=== PATIENT | male | born 1965 | race Two or more races ===

== ENCOUNTER → 2017-09-23 | Outpatient (CLI) | payer OTHER | END | disposition home or self-care (01) | LOC: TOM 12:07 | DX: H70.009 Acute mastoiditis without complications, unspecified ear (principal); H75.81 Other specified disorders of right middle ear and mastoid in diseases classified elsewhere; H70.11 Chronic mastoiditis, right ear ==

== ENCOUNTER → 2017-11-05 | Outpatient (CLI) | payer OTHER | END | disposition home or self-care (01) | LOC: TOM 15:22 | DX: G93.89 Other specified disorders of brain (principal) ==

== ENCOUNTER 2018-03-01 10:19 | Outpatient (CLI) | payer OTHER | END 2018-03-01 10:31 | disposition home or self-care (01) | LOC: RAD 501 10:19 | DX: J40 Bronchitis, not specified as acute or chronic (principal); J44.9 Chronic obstructive pulmonary disease, unspecified; J42 Unspecified chronic bronchitis ==

== ENCOUNTER 2018-06-14 10:31 | Emergency (ER) | payer OTHER ==
[~2018-06-14] VITALS: Ht 172.7 cm; Wt 83.9 kg
== END 2018-06-14 11:44 | disposition home or self-care (01) ==
LOC: ER 10:31
DX: H92.01 Otalgia, right ear (principal); R07.89 Other chest pain

== ENCOUNTER 2018-07-27 07:56 | Outpatient (CLI) | payer OTHER | END 2018-07-27 08:04 | disposition home or self-care (01) | LOC: SONOGRAMA 07:56 | DX: R22.1 Localized swelling, mass and lump, neck (principal) ==

== ENCOUNTER 2019-03-29 10:53 | Outpatient (CLI) | payer OTHER | END 2019-03-29 10:55 | disposition home or self-care (01) | LOC: MRI 10:53 | DX: M54.2 Cervicalgia (principal) | CPT/HCPCS: 72141 ==

== ENCOUNTER 2019-05-10 07:39 | Emergency (ER) | payer OTHER ==
[~2019-05-10] VITALS: Ht 172.7 cm; Wt 78.0 kg
== END 2019-05-10 08:49 | disposition home or self-care (01) ==
LOC: ER 07:39
DX: M54.2 Cervicalgia (principal); H70.13 Chronic mastoiditis, bilateral

== ENCOUNTER 2019-08-26 08:22 | Emergency (ER) | payer OTHER ==
[~2019-08-26] VITALS: Ht 172.7 cm; Wt 81.6 kg
[2019-08-26] MEDS ORDERED: VALIUM PO (08:57)
[2019-08-26] MEDS ORDERED: TYLENOL325 MG PO (09:12)
== END 2019-08-26 10:20 | disposition home or self-care (01) ==
LOC: ER 08:22
DX: M54.6 Pain in thoracic spine (principal)

== ENCOUNTER → 2019-08-26 | Emergency (ER) | payer OTHER ==
[~2019-08-26] MED LIST: TYLENOL325 MG PO; VALIUM PO
== END | disposition left against medical advice (07) ==
LOC: ER 07:50
DX: Z53.20 Procedure and treatment not carried out because of patient's decision for unspecified reasons (principal)

== ENCOUNTER 2020-02-01 17:45 | Emergency (ER) | payer OTHER ==
[~2020-02-01] VITALS: Ht 172.7 cm; Wt 79.4 kg
== END 2020-02-01 22:26 | disposition home or self-care (01) ==
LOC: ER 17:45
DX: B34.9 Viral infection, unspecified (principal); Z03.818 Encounter for observation for suspected exposure to other biological agents ruled out

== ENCOUNTER 2020-02-14 08:00 | Outpatient (CLI) | payer OTHER | END 2020-02-14 15:00 | disposition home or self-care (01) | LOC: PPH VACUNA 08:00 | DX: Z23 Encounter for immunization (principal) ==

== ENCOUNTER 2020-02-27 15:32 | Emergency (ER) | payer OTHER ==
[~2020-02-27] VITALS: Ht 172.7 cm; Wt 77.1 kg
== END 2020-02-27 19:23 | disposition home or self-care (01) ==
LOC: ER 15:32
DX: R06.02 Shortness of breath (principal); Z03.818 Encounter for observation for suspected exposure to other biological agents ruled out

== ENCOUNTER 2020-03-27 15:34 | Emergency (ER) | payer OTHER ==
[~2020-03-27] VITALS: Ht 172.7 cm; Wt 79.4 kg
== END 2020-03-27 17:52 | disposition home or self-care (01) ==
LOC: ER 15:34
DX: B34.9 Viral infection, unspecified (principal); Z03.818 Encounter for observation for suspected exposure to other biological agents ruled out

== ENCOUNTER 2020-04-17 16:34 | Emergency (ER) | payer OTHER ==
[~2020-04-17] VITALS: Ht 177.8 cm; Wt 83.9 kg
== END 2020-04-17 18:25 | disposition home or self-care (01) ==
LOC: ER 16:34
DX: R05 Cough (principal); Z03.818 Encounter for observation for suspected exposure to other biological agents ruled out

== ENCOUNTER 2020-05-15 09:25 | Outpatient (CLI) | payer OTHER | END 2020-05-15 15:00 | disposition home or self-care (01) | LOC: PPH VACUNA 09:25 | DX: Z23 Encounter for immunization (principal) ==

== ENCOUNTER 2020-06-04 11:15 | Outpatient (CLI) | payer OTHER | END 2020-06-04 15:00 | disposition home or self-care (01) | LOC: PPH VACUNA 11:15 | DX: Z23 Encounter for immunization (principal) ==

== ENCOUNTER → 2020-07-24 | Emergency (ER) | payer OTHER ==
[~2020-07-24] VITALS: Ht 175.3 cm; Wt 72.6 kg
== END | disposition home or self-care (01) ==
LOC: ER 11:37
DX: M79.671 Pain in right foot (principal); Z03.818 Encounter for observation for suspected exposure to other biological agents ruled out

== ENCOUNTER → 2020-10-09 08:59 | Outpatient (CLI) | payer OTHER | END | disposition home or self-care (01) | LOC: LAB 08:59 | DX: E88.81 Metabolic syndrome and other insulin resistance (principal); E03.8 Other specified hypothyroidism; E04.0 Nontoxic diffuse goiter; Z13.0 Encounter for screening for diseases of the blood and blood-forming organs and certain disorders involving the immune mechanism; E55.9 Vitamin D deficiency, unspecified; E66.8 Other obesity; E78.00 Pure hypercholesterolemia, unspecified; F51.01 Primary insomnia; Z12.5 Encounter for screening for malignant neoplasm of prostate; M19.90 Unspecified osteoarthritis, unspecified site ==

== ENCOUNTER 2021-01-09 14:32 | Emergency (ER) | payer OTHER ==
[~2021-01-09] VITALS: Ht 172.7 cm; Wt 82.6 kg
== END 2021-01-09 16:38 | disposition home or self-care (01) ==
LOC: ER 14:32
DX: Z03.818 Encounter for observation for suspected exposure to other biological agents ruled out (principal); R53.81 Other malaise

== ENCOUNTER 2021-01-24 08:00 | Outpatient (CLI) | payer OTHER | END 2021-01-24 08:30 | disposition home or self-care (01) | LOC: PPH VACUNA 08:00 | DX: Z23 Encounter for immunization (principal) ==

== ENCOUNTER → 2021-01-25 | Outpatient (CLI) | payer OTHER | END | disposition home or self-care (01) | LOC: LAB 08:19 | PROVIDERS: ATTEND Internal Medicine | DX: E11.9 Type 2 diabetes mellitus without complications (principal) ==

== ENCOUNTER 2021-03-01 15:40 | Outpatient (CLI) | payer OTHER | END 2021-03-01 15:45 | disposition home or self-care (01) | LOC: PPH VACUNA 15:40 | PROVIDERS: ATTEND Emergency Medicine Pediatric Emergency Medicine | DX: Z23 Encounter for immunization (principal) ==

== ENCOUNTER 2021-08-29 08:00 | Outpatient (CLI) | payer OTHER | END 2021-08-29 08:30 | disposition home or self-care (01) | LOC: PPH VACUNA 08:00 | PROVIDERS: ATTEND Emergency Medicine Pediatric Emergency Medicine | DX: Z23 Encounter for immunization (principal) ==

== ENCOUNTER 2021-10-15 07:08 | Outpatient (CLI) | payer OTHER | END 2021-10-15 08:47 | disposition home or self-care (01) | LOC: LAB 07:08 | PROVIDERS: ATTEND General Practice | DX: I10 Essential (primary) hypertension (principal); E11.9 Type 2 diabetes mellitus without complications; E03.9 Hypothyroidism, unspecified; N40.1 Benign prostatic hyperplasia with lower urinary tract symptoms ==

== ENCOUNTER 2022-02-14 14:40 | Outpatient (CLI) | payer OTHER | END 2022-02-14 14:45 | disposition home or self-care (01) | LOC: PPH VACUNA 14:40 | PROVIDERS: ATTEND Emergency Medicine Pediatric Emergency Medicine | DX: Z23 Encounter for immunization (principal) ==

== ENCOUNTER 2023-03-06 12:32 | Emergency (ER) | payer OTHER ==
[~2023-03-06] VITALS: Ht 177.8 cm; Wt 90.7 kg
[2023-03-06] MEDS ORDERED: OZEMPIC1 MG/0.71 SQ (12:33)
[2023-03-06 13:09] LABS: HEMATOCRIT 43.2 % (39.0-48.0); HEMOGLOBIN 14.5 g/dL (13-16.00); MEAN CELL VOLUME 95.4 fL (80.0-100.00); MEAN CORPUSCULAR HEMOGLOBIN 31.9 pg (27.00-32.0); MEAN CORPUSCULAR HGB CONC 33.4 g/dl (32.0-36.0); PLATELET COUNT 222 K/uL (150-450); RED BLOOD COUNT 4.53 M/uL (4.00-6.00); RED CELL DISTRIBUTION WIDTH 13.5 % (11.5-14.5)
[2023-03-06 13:32] LABS: ALBUMIN 4.3 gm/dL (3.4-5.0); BILIRUBIN TOTAL 0.38 mg/dL (0.3-1.2); CALCIUM 9.5 mg/dL (8.5-10.1); CREATININE SERUM 1.34 mg/dL (0.70-1.30); GFR 54.37; GLOBULINA 3.8 G/DL (2.4-3.5); POTASSIUM 4.59 mEq/L (3.5-5.1); TOTAL PROTEIN 8.1 gm/dL (6.4-8.2)
[2023-03-06 13:56] LABS: PH,URINE 5.5 (5.0-8.0); URINE APPEARANCE Clear; URINE BILIRRUBIN Negative (NEGATIVE); URINE BLOOD Large; URINE COLOR Yellow; URINE GLUCOSE Negative (NEGATIVE); URINE LEUKOCYTE Trace; URINE NITRATE Negative; URINE PROTEIN Trace (NEGATIVE)
[2023-03-06 14:10] LABS: URINE BACTERIA 17.6 uL (0.0-1933); URINE RBC 172.4 uL (0.0-20.8)
== END 2023-03-06 15:11 | disposition home or self-care (01) ==
LOC: ER 12:32
PROVIDERS: Emergency Medicine
DX: N20.9 Urinary calculus, unspecified (principal); E11.65 Type 2 diabetes mellitus with hyperglycemia; Z79.84 Long term (current) use of oral hypoglycemic drugs; K57.30 Diverticulosis of large intestine without perforation or abscess without bleeding; Z88.6 Allergy status to analgesic agent

== ENCOUNTER 2023-05-13 07:17 | Outpatient (CLI) | payer OTHER ==
[~2023-05-13 07:17] MED LIST changes: +OZEMPIC1 MG/0.71 SQ
== END 2023-05-13 07:50 | disposition home or self-care (01) ==
LOC: SONOGRAMA 07:17
PROVIDERS: ATTEND Specialist
DX: R19.09 Other intra-abdominal and pelvic swelling, mass and lump (principal)

== ENCOUNTER 2023-05-15 11:56 | Outpatient (CLI) | payer OTHER | END 2023-05-15 11:57 | disposition home or self-care (01) | LOC: RAD 11:56 | PROVIDERS: ATTEND Emergency Medicine | DX: Z01.818 Encounter for other preprocedural examination (principal) ==

== ENCOUNTER 2023-08-06 20:32 | Emergency (ER) | payer OTHER ==
[~2023-08-06] VITALS: Ht 167.6 cm; Wt 77.1 kg
[2023-08-06] MEDS ORDERED: FAMOTIDINE/PF 20 MG in 0.9 % SODIUM CHLORIDE 8 ML IV PUSH STA (20:34)
[2023-08-06 20:43] LABS: HEMATOCRIT 40.8 % (39.0-48.0); HEMOGLOBIN 14.2 g/dL (13-16.00); MEAN CORPUSCULAR HEMOGLOBIN 32.3 pg (27.00-32.0); MEAN CORPUSCULAR HGB CONC 34.7 g/dl (32.0-36.0); PLATELET COUNT 239 K/uL (150-450); RED BLOOD COUNT 4.39 M/uL (4.00-6.00); RED CELL DISTRIBUTION WIDTH 13.6 % (11.5-14.5)
[2023-08-06] MEDS ORDERED: ONDANSETRON HCL 2 MG/ML VIAL IV ONE (20:45)
[2023-08-06] MEDS ORDERED: TICAGRELOR 90 MG TABLET PO ONE (20:45)
[2023-08-06] MEDS ORDERED: MORPHINE SULFATE 4 MG/ML CARTRIDGE IV ONE (20:45)
[2023-08-06 21:02] LABS: INR 1.03; PARTIAL THROMBOPLASTIN TIME 23.8 SECONDS (22.0-34.0); PROTHROMBIN TIME 10.8 SECONDS (9.0-11.5)
[2023-08-06 21:06] LABS: ALBUMIN 4.1 gm/dL (3.4-5.0); BILIRUBIN TOTAL 0.33 mg/dL (0.3-1.2); CALCIUM 9.7 mg/dL (8.5-10.1); CREATININE SERUM 1.24 mg/dL (0.70-1.30); GFR 59.46; GLOBULINA 3.8 G/DL (2.4-3.5); POTASSIUM 3.57 mEq/L (3.5-5.1); TOTAL PROTEIN 7.9 gm/dL (6.4-8.2)
== END 2023-08-06 22:24 | disposition left against medical advice (07) ==
LOC: ER 20:32
PROVIDERS: General Practice
DX: R10.13 Epigastric pain (principal); Z88.6 Allergy status to analgesic agent; E11.9 Type 2 diabetes mellitus without complications; Z79.84 Long term (current) use of oral hypoglycemic drugs

== ENCOUNTER 2024-03-27 04:58 | Inpatient (IN) | payer OTHER ==
[~2024-03-27] VITALS: Ht 172.7 cm; Wt 76.2 kg
[2024-03-27] MEDS ORDERED: 0.9 % SODIUM CHLORIDE 1,000 ML IV SCH (05:00)
[2024-03-27] MEDS ORDERED: FAMOtidine 10 MG/ML (4ML VIAL) IV PUSH ONE (05:00)
[2024-03-27] MEDS ORDERED: MEPERIDINE HCL/PF 50 MG/ML VIAL IM ONE (05:00)
[2024-03-27] MEDS ORDERED: ONDANSETRON HCL 2 MG/ML VIAL IV ONE ×2 (05:00→12:45)
[2024-03-27] MEDS ORDERED: PANTOPRAZOLE SODIUM 40 MG in 0.9 % SODIUM CHLORIDE 8 ML IV PUSH STA (05:57)
[2024-03-27 06:02] LABS: ALBUMIN 3.9 gm/dL (3.4-5.0); BILIRUBIN TOTAL 0.4 mg/dL (0.3-1.2); CALCIUM 9.5 mg/dL (8.5-10.1); CREATININE SERUM 1.32 mg/dL (0.70-1.30); GFR 55.14; GLOBULINA 3.5 G/DL (2.4-3.5); POTASSIUM 4.41 mEq/L (3.5-5.1); TOTAL PROTEIN 7.4 gm/dL (6.4-8.2)
[2024-03-27 06:13] LABS: HEMATOCRIT 41.1 % (39.0-48.0); HEMOGLOBIN 14.2 g/dL (13-16.00); MEAN CELL VOLUME 94.6 fL (80.0-100.00); MEAN CORPUSCULAR HEMOGLOBIN 32.6 pg (27.00-32.0); MEAN CORPUSCULAR HGB CONC 34.4 g/dl (32.0-36.0); PLATELET COUNT 218 K/uL (150-450); RED BLOOD COUNT 4.35 M/uL (4.00-6.00)
[2024-03-27] MEDS ORDERED: MEPERIDINE HCL/PF 50 MG/ML VIAL IM PRN (07:45)
[2024-03-27] MEDS ORDERED: ONDANSETRON HCL 2 MG/ML VIAL IV PRN (09:30)
[2024-03-27 09:46] VITALS: BP 140/73
[2024-03-27] MEDS ORDERED: PIPERACILLIN/TAZOBACTAM SODIUM 3.375 GM VIAL IV SCH (12:00)
[2024-03-27] MEDS ORDERED: MORPHINE SULFATE 4 MG in 0.9 % SODIUM CHLORIDE 9 ML IV PRN (12:45)
[2024-03-27] MEDS ORDERED: MEPERIDINE HCL/PF 25 MG/ML VIAL IV PRN (12:45)
[2024-03-27] MEDS ORDERED: BUPIVACAINE HCL 30 ML VIAL IJ ONE (14:00)
[2024-03-27] MEDS ORDERED: hydrALAZINE HCL 20 MG VIAL IV ONE (14:00)
[2024-03-27 17:48] VITALS: BP 129/77; O2SAT 95
[2024-03-27] MEDS ORDERED: PIPERACILLIN/TAZOBACTAM SODIUM 3.375 GM in 0.9 % SODIUM CHLORIDE 100 ML IV SCH (18:00)
[2024-03-27] MEDS ORDERED: ACETAMINOPHEN 500 MG GEL..CAP PO PRN (19:30)
[2024-03-28 00:42] VITALS: BP 118/65; O2SAT 92
[2024-03-28 07:57] VITALS: BP 119/62; O2SAT 95
[2024-03-28 10:14] LABS: ALBUMIN 3.3 gm/dL (3.4-5.0); BILIRUBIN TOTAL 0.65 mg/dL (0.3-1.2); CALCIUM 8.6 mg/dL (8.5-10.1); CREATININE SERUM 1.19 mg/dL (0.70-1.30); GFR 62.15; GLOBULINA 2.8 G/DL (2.4-3.5); POTASSIUM 4.38 mEq/L (3.5-5.1); TOTAL PROTEIN 6.1 gm/dL (6.4-8.2)
== END 2024-03-28 14:00 | disposition home or self-care (01) | DRG 419 ==
LOC: ER 04:58 → SURG 09:43 → SURH 09:43 → SURG 11:16 → MEDI 15:53 → SURG 16:18
PROVIDERS: General Practice; Student in an Organized Health Care Education/Training Program; ADMIT Internal Medicine; ATTEND Internal Medicine
PROC: BW21ZZZ Computerized Tomography (CT Scan) of Abdomen and Pelvis (ICD-10-PCS; 2024-03-27)
PROC: BW40ZZZ Ultrasonography of Abdomen (ICD-10-PCS; 2024-03-27)
PROC: 0FT44ZZ Resection of Gallbladder, Percutaneous Endoscopic Approach (ICD-10-PCS; principal; 2024-03-27 13:00)
DX: K80.00 Calculus of gallbladder with acute cholecystitis without obstruction (principal); K80.10 Calculus of gallbladder with chronic cholecystitis without obstruction; R10.13 Epigastric pain; Z20.822 Contact with and (suspected) exposure to COVID-19

== ENCOUNTER → 2024-08-08 | Outpatient (CLI) | payer OTHER | END | disposition home or self-care (01) | LOC: MRI 11:46 | PROVIDERS: ATTEND Orthopaedic Surgery | DX: M23.92 Unspecified internal derangement of left knee (principal); M25.562 Pain in left knee | CPT/HCPCS: 73721 ==

== ENCOUNTER 2024-12-07 07:27 | Outpatient (CLI) | payer OTHER | END 2024-12-08 08:11 | disposition home or self-care (01) | LOC: RAD 07:27 | PROVIDERS: ATTEND Ophthalmology | DX: I10 Essential (primary) hypertension (principal); E11.69 Type 2 diabetes mellitus with other specified complication; Z01.811 Encounter for preprocedural respiratory examination ==